=== PATIENT | male | born 1945 | race Caucasian/White ===

== ENCOUNTER → 2016-04-13 | Outpatient (CLI) | payer MEDICARE, BC ==
[~2016-04-13] MED LIST: FINASTERIDE PO; HYDR-906 PO; TRAM50TA2 PO
--- NOTE | 2016-04-13 11:37 | RADRPT ---
PROCEDURE: XR left knee. CLINICAL INDICATION: Knee pain TECHNIQUE: AP weightbearing, PA weightbearing, lateral weightbearing and sunrise views are availab le for review. COMPARISON: None available FINDINGS: There is calcific enthesopathy involving the anterior superior aspect of the patella. There is mild osteoarthrosis involving the medial tibial femoral compartment, lateral tibial femoral compartment a nd patellofemoral compartment. This is associated with minimal osteophytosis. The osseous structures are otherwise normal in mineralization, architecture and alignment. No fract ures are identified. No osseous lesions are identified. The soft tissues are unremarkable. IMPRESSION: Calcific enthesopathy involving the anterior superior aspect of the patella. 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 RPTAT: HGDB .Jono Montejo MD, MD Date Time Electronically viewed and signed by .Jono Montejo MD, on 04/13/2016 11:37 .B/
== END | disposition home or self-care (01) ==
LOC: HKI 10:08
PROVIDERS: ATTEND Orthopaedic Surgery
DX: M17.12 Unilateral primary osteoarthritis, left knee (principal); S83.231D Complex tear of medial meniscus, current injury, right knee, subsequent encounter; X58.XXXD Exposure to other specified factors, subsequent encounter
CPT/HCPCS: 73564; G0463

== ENCOUNTER → 2016-04-23 | Outpatient (CLI) | payer MEDICARE, BC | END | disposition home or self-care (01) | LOC: HKI 09:31 | PROVIDERS: ATTEND Orthopaedic Surgery | DX: Z01.818 Encounter for other preprocedural examination (principal); S83.232D Complex tear of medial meniscus, current injury, left knee, subsequent encounter; S83.272D Complex tear of lateral meniscus, current injury, left knee, subsequent encounter; M25.562 Pain in left knee | CPT/HCPCS: G0463 ==

== ENCOUNTER → 2016-04-23 | Outpatient (CLI) | payer MEDICARE, BC | END | disposition home or self-care (01) | LOC: LAB 16:00 → EDSTATUS 04-26 13:30 | PROVIDERS: ATTEND Orthopaedic Surgery | DX: Z01.818 Encounter for other preprocedural examination (principal) | CPT/HCPCS: 87081 ==

== ENCOUNTER 2016-05-03 08:08 | Day surgery (SDC) | payer MEDICARE, BC ==
[2016-05-02 14:35] VITALS: BMI 24.0
[~2016-05-03] VITALS: Ht 193 cm; Wt 82.3 kg
[2016-05-03] VITALS (13 sets, daily range): BP systolic 125–143; BP diastolic 63–74; PULSE 72–90; RESP 11–20; Ht 193 cm; Wt 82.3 kg
[~2016-05-03 08:08] MED LIST changes: +MELOXICAM 15 MG TAB PO SCH
[2016-05-03] MEDS ORDERED: CEFAZOLIN 2GM/50 ML (PMX) 50 ML X1 BEFORE INCISION IVPB ONE (09:00)
[2016-05-03] MEDS ORDERED: LACTATED RINGER'S 1,000 ML IV SCH (09:00)
[2016-05-03] MEDS ORDERED: PREGABALIN 300 MG PO X1 PO ONE (09:00)
[2016-05-03] MEDS ORDERED: oxyCODONE (CR) 10 MG TAB [oxyCONTIN] X1 DOSE PO ONE (09:00)
[2016-05-03] MEDS ORDERED: traMADOL 50 MG TAB X 1 DOSE PO ONE (09:00)
[2016-05-03] MEDS ORDERED: morphine SULFATE/PF (10 MG/10 ML) INJ ONE (10:21)
[2016-05-03] MEDS ORDERED: ROPIVACAINE 0.5 % 30 ML VIAL ONE ×2 (10:21→10:55)
[2016-05-03] MEDS ORDERED: KETOROLAC 30 MG INJ ONE ×2 (10:21→11:44)
[2016-05-03] MEDS ORDERED: LIDOCAINE 1%/EPI 30 ML INJ ONE (10:22)
--- NOTE | 2016-05-03 10:25 | HPN ---
Date/Time of Note Date/Time of Note DATE: 05/03/16 TIME: 10:24 Interval H&P Admission Note Pt. seen H&P reviewed: No system changes No changes from H&P on 04/20/16 by AIRAM Joyner MD May 03, 2016 10:25
[2016-05-03] MEDS ORDERED: MIDAZOLAM 1 MG/ML 2 ML INJ ONE (10:31)
[2016-05-03] MEDS ORDERED: PROPOFOL 20 ML ONE ×2 (10:31→11:05)
[2016-05-03] MEDS ORDERED: LIDOCAINE 2% (SDV) 5 ML INJ ONE (10:31)
[2016-05-03] MEDS ORDERED: CEFAZOLIN 1 GM INJ ONE (10:49)
[2016-05-03] MEDS ORDERED: METOCLOPRAMIDE 10 MG INJ ONE (10:51)
[2016-05-03] MEDS ORDERED: FAMOTIDINE 20 MG INJ ONE (10:51)
[2016-05-03] MEDS ORDERED: DEXAMETHASONE 4 MG/ML 1 ML INJ ONE (10:51)
[2016-05-03] MEDS ORDERED: ONDANSETRON 4 MG INJ ONE (10:51)
[2016-05-03] MEDS ORDERED: ROPIVACAINE 0.5 % 30 ML VIAL INJ ONE (10:56)
[2016-05-03] MEDS ORDERED: EPHEDrine SULFATE 50 MG/5 ML SYG ONE (11:00)
[2016-05-03] MEDS ORDERED: FENTAnyl 50 MCG/ML VIAL ONE (11:29)
[2016-05-03] MEDS ORDERED: HYDROmorphONE (0.2 MG/ML) 10ML SYG IV PRN (11:30)
[2016-05-03] MEDS ORDERED: OXYCODONE/ACETAMINOPHEN (5/325) TAB PO PRN (11:30)
[2016-05-03] MEDS ORDERED: ONDANSETRON 4 MG INJ IV PRN (11:30)
[2016-05-03] MEDS ORDERED: MEPERIDINE 25 MG INJ IV PRN (11:30)
[2016-05-03] MEDS ORDERED: PROCHLORPERAZINE 10 MG INJ IV PRN (11:30)
[2016-05-03] MEDS ORDERED: FENTAnyl 50 MCG/ML VIAL IV PRN (11:30)
[2016-05-03] MEDS ORDERED: DIPHENHYDRAMINE 50 MG INJ IV PRN (11:30)
--- NOTE | 2016-05-03 12:18 | OPR ---
Date/Time of Note Date/Time of Note DATE: 05/03/16 TIME: 12:16 Operative Report Free Text/Dictation Dictation # [id number] Procedure Date: May 03, 2016 Preoperative Diagnosis Left Knee Medial and Lateral Meniscal Tears Postoperative Diagnosis Same Operation Performed Left Knee A/S and Partial MM and LM Surgeon: AIRAM HERNANDEZ MD household assistant: PAUL RUIZ PA-C Anesthesia: general Anesthesiologist: CHARLEY KOHLI MD Tourniquet Time: None Estimated Blood Loss: minimal Specimens None Tubes/Drains None Complications: None Pt Condition Post Procedure: stable Disposition: PACU AIRAM HERNANDEZ MD May 03, 2016 12:18
--- NOTE | 2016-05-03 12:48 | OPR ---
DATE OF OPERATION: 05/03/2016 PREOPERATIVE DIAGNOSIS: Left knee medial and lateral meniscal tears. POSTOPERATIVE DIAGNOSIS: Left knee medial and lateral meniscal tears. OPERATION PERFORMED: Left knee arthroscopy, partial medial and lateral meniscectomies. SURGEON: Airam Avendaño MD HORTICULTURE INSTRUCTOR: Markus Hawkins PA-C ANESTHESIA: General endotracheal intubation, plus periarticular injection. ANESTHESIOLOGIST: Dr. Adrianna Prather TOURNIQUET TIME: Zero minutes. ESTIMATED BLOOD LOSS: Scant. INTRAVENOUS FLUIDS: 800 mL of crystalloid. SPECIMENS: None. DRAINS: None. COMPLICATIONS: None. DISPOSITION: The patient tolerated the procedure well and was taken to the recovery room in stable condition. INDICATIONS: The patient is a 70-year-old gentleman who has had pain along the medial and lateral a spects of the left knee, with mechanical symptoms of catching and popping. He had MRI which demonst rated medial and lateral meniscal tears. I felt he would benefit from knee arthroscopy and partial medial and lateral meniscectomies. The risks, benefits and alternatives of the procedure were expla ined in detail to the patient. I explained the risks to include, but not be limited to, bleeding, i nfection, pain, stiffness, neurovascular injury with possible numbness, weakness, and/or paralysis a nywhere from the knee down to the toes, fracture, ligamentous injury, need for additional future gladis candace, including possible conversion to a total knee arthroplasty, wound healing problems, blood clot s, pulmonary embolism, and anesthetic complications such as heart attack, stroke, GI bleed, pneumoni a and/or . Ample time was allowed for the patient to ask questions, all of which were addresse d and answered. He understood the risks involved and wished to proceed. Informed consent was sandro d prior to the procedure. DESCRIPTION OF PROCEDURE: The left knee was initialed with a marking pen in the preoperative holdin g area to identify the correct operative site. The patient was then brought to the operating room a nd transferred from the [facility] to the operating table, where he was anesthetized and intuba amairani. A time-out was performed to confirm the left side was the correct operative site. He was give n 2 grams of intravenous Ancef within 1 hour prior to the incision. The superolateral aspect of the left knee was prepped with Betadine and then injected with 30 mL of 0.5% ropivacaine into the knee joint. The entire left knee and lower extremity were prepped and draped in the usual sterile fashio n. Standard arthroscopic portal incisions were made, one inferolateral and one inferomedial, to the pat ellar tendon. The arthroscope was introduced into the inferolateral portal and the arthroscopy init iated. The suprapatellar pouch was free of meniscal fragments and blood. The medial and lateral gu tters were inspected and free of meniscal fragments, blood and synovitis. 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 The medial compartment was then inspected and there was an extensive tear of the posterior horn and body of the medial meniscus that was debrided back to a stable edge with a combination of the sarah and Arthr ocare wand. It was probed and was stable. There was some mild grade II chondromalacia along the me dial tibial plateau. The medial femoral condyle looked healthy, with no significant degenerative ch anges. The inner trochlear notch was inspected and the ACL and PCL were in normal position, no evid ence of tearing. The lateral compartment was inspected and there was extensive tearing of the later al meniscal body to the posterior horn of the lateral meniscus. This was debrided back to a stable edge with a combination of the shaver and Arthrocare wand. It was probed and was stable. At this p oint, the knee arthroscopy was completed. The knee was irrigated through the arthroscope until the egress of fluid was free of meniscal fragments and blood. The instruments were removed. The knee w as injected with a mixture of 0.5% ropivacaine, 4 mg of Duramorph, and 30 mg of Toradol. The portal incisions were then closed with interrupted 3-0 Monocryl and 3-0 Prolene in vertical mattress fashi on. The skin edges were sealed with Dermabond. The wounds were covered with Adaptic, 4 x 4s and wr apped with sterile cast padding and Ari wrap. The patient was awakened, extubated, and taken to the recovery room in stable condition. Dictated By: AIRAM ROGERS/GISELLA Conf#: [id number] [facility]#: [id number]
[2016-05-03] MEDS ORDERED: traMADol 50 MG TAB PO PRN (16:00)
== END 2016-05-03 14:15 | disposition home or self-care (01) ==
LOC: SDS 08:08
PROVIDERS: ATTEND Orthopaedic Surgery
DX: M23.252 Derangement of posterior horn of lateral meniscus due to old tear or injury, left knee (principal); M23.222 Derangement of posterior horn of medial meniscus due to old tear or injury, left knee
CPT/HCPCS: 29880; 86850; 86900; 86901; 86920; J0690; J1100; J1885; J2250; J2274; J2405; J2765; J2795; J3010

== ENCOUNTER → 2016-05-11 | Outpatient (CLI) | payer MEDICARE, BC ==
[~2016-05-11] MED LIST changes: -MELOXICAM 15 MG TAB PO SCH
--- NOTE | 2016-05-11 13:32 | HKNOTE ---
DATE OF SERVICE: 05/11/2016 INTERVAL HISTORY: The patient presents today for a postoperative evaluation on his left knee. He i s now approximately 1 week status post left knee arthroscopy and partial medial and lateral meniscec felicia. He is doing well overall. He is having minimal pain to the left knee since the surgery. He has had no fevers or chills. He is excited to resume his normal activity. He has not started physi brandon therapy yet. He presents today for his first postoperative evaluation. PHYSICAL EXAMINATION: Today, he is alert and oriented x4 and in no acute distress. Examination of the incisions demonstrated them to be clean, dry and intact. Sutures are in place. Knee range of m otion is 0 to 120 degrees. Varus and valgus forces are stable. There is no erythema or warmth. Th ere is no significant effusion. Compartments are soft. Homans sign is negative. He is neurovascul jesus intact distally. ASSESSMENT: Approximately 1 week status post left knee arthroscopy, partial medial and lateral meni scectomy. PLAN: The sutures removed today and the Steri-Strips were applied. He is to gradually return back to his normal physical activity as tolerated. We will start him on an outpatient physical therapy p jennifer. Patient will follow up in 4 weeks for repeat evaluation. Dictated By: PAUL OLIVAREZ for AIRAM BAER/GISELLA Conf#: [id number] DID#: [id number]
== END | disposition home or self-care (01) ==
LOC: HKI 09:55
PROVIDERS: ATTEND Orthopaedic Surgery
DX: Z47.89 Encounter for other orthopedic aftercare (principal); S83.282D Other tear of lateral meniscus, current injury, left knee, subsequent encounter; S83.242D Other tear of medial meniscus, current injury, left knee, subsequent encounter

== ENCOUNTER → 2016-06-08 | Outpatient (CLI) | payer MEDICARE, BC | END | disposition home or self-care (01) | LOC: HKI 10:16 | PROVIDERS: ATTEND Orthopaedic Surgery | DX: Z47.89 Encounter for other orthopedic aftercare (principal); S83.232D Complex tear of medial meniscus, current injury, left knee, subsequent encounter; S83.272D Complex tear of lateral meniscus, current injury, left knee, subsequent encounter ==